=== PATIENT | female | born 1965 | race Caucasian/White ===

== ENCOUNTER 2018-11-09 13:15 | Observation (INO) | payer MEDICAID ==
[~2018-11-09] VITALS: Ht 170.2 cm; Wt 113.3 kg
[2018-11-09] MEDS ORDERED: ALBUTEROL/IPRATROPIUM 2.5MG/0.5MG, 3 ML NPPB ONE (13:30)
[2018-11-09] MEDS ORDERED: ALBUTEROL/IPRATROPIUM 2.5MG/0.5MG, 3 ML ONE (13:38)
[2018-11-09] MEDS ORDERED: ALBUTEROL 0.5%, 20ML ONE ×2 (13:49→13:52)
[2018-11-09] MEDS ORDERED: SODIUM CHLORIDE FLUSH 10ML SYR IVF ONE (14:00)
[2018-11-09] MEDS ORDERED: methylPREDNISolone SOD SUCC 125 MG/2 ML IVP ONE (14:00)
[2018-11-09] MEDS ORDERED: MAGNESIUM SULFATE PMX 2GM/50ML 50 ML IV ONE (14:00)
[2018-11-09] MEDS ORDERED: SODIUM CHLORIDE 0.9% 1,000ML IVBOLUS ONE (14:00)
[2018-11-09 14:03] LABS: ANION GAP 6 mmol/L (5-15); CHLORIDE 110 mmol/L (98-107); CREATININE 0.79 mg/dL (0.55-1.02)
[2018-11-09 14:10] LABS: TROPONIN I < 0.015 ng/mL (0.000-0.045)
[2018-11-09 14:18] LABS: BASOPHILS # (AUTO) 0.05 x10^3/uL (0-0.1); BASOPHILS % (AUTO) 1 % (0-1); EOSINOPHILS # (AUTO) 1.46 x10^3/uL (0-0.4); EOSINOPHILS % (AUTO) 14 % (1-7); LYMPHOCYTES # (AUTO) 2.06 x10^3/uL (1-3.4); LYMPHOCYTES % (AUTO) 20 % (22-44); MD NO; MEAN CORPUSCULAR HEMOGLOBIN 31.1 pg (27.0-34.8); MEAN CORPUSCULAR HGB CONC 33.3 g/dL (32.4-35.8); MEAN CORPUSCULAR VOLUME 93.3 fL (80-100); MEAN PLATELET VOLUME 9.9 fL (7.4-10.4); MONOCYTES # (AUTO) 0.69 x10^3/uL (0.2-0.8); MONOCYTES % (AUTO) 7 % (2-9); NEUTROPHILS # (AUTO) 6.08 x10^3/uL (1.8-6.8); NEUTROPHILS % (AUTO) 59 % (42-75); PLATELET COUNT 185 x10^3/uL (130-400); RED BLOOD COUNT 4.96 x10^6/uL (3.82-5.3); RED CELL DISTRIBUTION WIDTH 12.6 % (9.6-15.2)
[2018-11-09] MEDS ORDERED: methylPREDNISolone SOD SUCC 125 MG/2 ML ONE (14:18)
[2018-11-09] MEDS ORDERED: ALBU18HF INH (14:27)
[2018-11-09] MEDS ORDERED: IBUP-1223 PO (14:27)
--- NOTE | 2018-11-09 14:28 | NUR ---
IV PLACED, LABS DRAWN, PT MEDICATED PER DEC. FLUIDS RUNNING. VSS. PT CURRENTLY ON CONTINUOUS NEB. CALL LIGHT WITHIN REACH. AWAITING RECHECK AND DISPO
[2018-11-09] MEDS ORDERED: ENALAPRILAT 1.25 MG/ML, 2ML IVPush PRN (14:30)
[2018-11-09] MEDS ORDERED: ONDANSETRON 2MG/ML, 2ML IVPush PRN (14:30)
[2018-11-09] MEDS ORDERED: GUAIFENESIN/DM 200-20MG, 10ML UDC PO PRN (14:30)
[2018-11-09] MEDS ORDERED: ACETAMINOPHEN 325 MG TABLET PO PRN (14:30)
[2018-11-09] MEDS ORDERED: ENOXAPARIN 40 MG/0.4 ML SQ SCH (14:30)
[2018-11-09] MEDS ORDERED: TEMAZEPAM 15 MG CAPSULE PO PRN (14:30)
[2018-11-09] MEDS ORDERED: ONDANSETRON ODT 4 MG PO PRN (14:30)
--- NOTE | 2018-11-09 14:33 | NUR ---
HOSPITALIST AT BEDSIDE
--- NOTE | 2018-11-09 15:23 | NUR ---
REPORT GIVEN TO GAGAN. PT READY FOR TRANSPORT.
[2018-11-09] MEDS ORDERED: ALBUTEROL/IPRATROPIUM 2.5MG/0.5MG, 3 ML NPPB PRN (16:00)
[2018-11-09] MEDS: ALBUTEROL/IPRATROPIUM 2.5MG/0.5MG, 3 ML NPPB SCH ×3 (16:00→22:27)
[2018-11-09 16:03] VITALS: BP 128/66
[2018-11-09] MEDS: methylPREDNISolone SOD SUCC 125 MG/2 ML IVPush SCH ×2 (16:28→22:59)
[2018-11-09] MEDS: AZITHROMYCIN 500 MG TABLET PO SCH (16:29)
[2018-11-09 20:26] VITALS: BP 133/68
[2018-11-09] MEDS: BUDESONIDE 0.5 MG/2 ML INHA NPPB SCH (22:27)
[2018-11-10 01:28] VITALS: BP 127/68
[2018-11-10] MEDS: ALBUTEROL/IPRATROPIUM 2.5MG/0.5MG, 3 ML NPPB SCH ×3 (02:10→10:08)
[2018-11-10] MEDS: methylPREDNISolone SOD SUCC 125 MG/2 ML IVPush SCH ×2 (04:37→10:04)
[2018-11-10] MEDS: BUDESONIDE 0.5 MG/2 ML INHA NPPB SCH (06:12)
[2018-11-10 07:20] VITALS: BP 112/61
[2018-11-10] MEDS: AZITHROMYCIN 500 MG TABLET PO SCH (08:45)
[2018-11-10] MEDS ORDERED: AZIT250T PO (10:36)
[2018-11-10] MEDS ORDERED: METH4TAB2 PO (10:36)
[2018-11-10] MEDS ORDERED: ALBU18HF INH (10:36)
[2018-11-10] MEDS ORDERED: BECL10.62 INH (10:36)
== END 2018-11-10 11:55 | disposition home or self-care (01) ==
LOC: ED 13:56 → INTOOBSV 14:29 → EDIP 14:29 → 4WST 15:55 → DCLOUNGE 11-10 11:40
PROVIDERS: ADMIT Internal Medicine; ATTEND Internal Medicine
DX: J96.01 Acute respiratory failure with hypoxia (principal); J45.52 Severe persistent asthma with status asthmaticus; D72.829 Elevated white blood cell count, unspecified; Z79.899 Other long term (current) drug therapy
CPT/HCPCS: 36415; 71046; 80048; 82040; 83735; 84484; 85025; 87070; 87077; 87186; 87205; 93005; 94640; 94644; 96365; 96366; 96375; 96376; 99291; G0378; J1650; J2930; J3475; J7030; J7620; J7626; 96374